=== PATIENT | female | born 2000 | race Caucasian/White ===

== ENCOUNTER → 2022-08-02 | Outpatient (CLI) | payer MEDICARE, OTHER ==
[~2022-08-02] MED LIST: MYCO250C PO; PRED5TA PO; TACR1CAP3 PO; VITA200044 PO
== END ==
LOC: M LABSMTC 09:31
PROVIDERS: ATTEND Anesthesiology
DX: Z01.812 Encounter for preprocedural laboratory examination (principal); Z20.822 Contact with and (suspected) exposure to COVID-19

== ENCOUNTER 2022-08-05 09:32 | Day surgery (SDC) | payer MEDICARE, OTHER ==
[~2022-08-05] VITALS: Ht 142.2 cm; Wt 47.1 kg
[2022-08-05] MEDS ORDERED: LR 1,000 ML IV SCH (09:55)
[2022-08-05] MEDS ORDERED: LIDOCAINE W/EPINEPHRINE 1% 20ML VIAL As Ordered ONE (10:51)
[2022-08-05] MEDS ORDERED: MIDAZOLAM INJ 2MG/2ML VIAL (J2250 PER 1MG) As Ordered ONE (10:51)
[2022-08-05] MEDS ORDERED: OXYMETAZOLINE 0.05% NASAL SPRAY (AFRIN) As Ordered ONE (10:51)
[2022-08-05] MEDS ORDERED: ROCURONIUM BROMIDE 50 MG/5 ML VIAL As Ordered ONE (10:52)
[2022-08-05] MEDS ORDERED: dexameTHASONE 4 MG/ML 1ML VIAL (J1100 PER 1MG) As Ordered ONE (10:52)
[2022-08-05] MEDS ORDERED: fentaNYL 100 MCG/2 ML INJECTION As Ordered ONE (10:52)
[2022-08-05] MEDS ORDERED: SUCCINYLCHOLINE 100 MG/5 ML SYRINGE (J0330) As Ordered ONE (10:52)
[2022-08-05] MEDS ORDERED: ONDANSETRON 4MG 2ML VIAL As Ordered ONE (10:53)
[2022-08-05] MEDS ORDERED: ACETAMINOPHEN 1000MG 100ML IV BTL (OFIRMEV) (J0131 PER 10MG) As Ordered ONE (10:53)
[2022-08-05] MEDS ORDERED: METOCLOPRAMIDE INJ 10MG/2ML VIAL (J2765 PER 1) As Ordered ONE (10:54)
[2022-08-05] MEDS ORDERED: propofoL 200 MG/20 ML VIAL As Ordered ONE (10:56)
[2022-08-05] MEDS ORDERED: LIDOCAINE 2% 100MG/5ML SDV (FOR ANES.) As Ordered ONE (10:56)
[2022-08-05] MEDS ORDERED: LIDOCAINE 2% JELLY 5ML TUBE As Ordered ONE (10:59)
[2022-08-05] MEDS ORDERED: ePHEDrine SULFATE 25 MG/5 ML(5MG/ML) SYRINGE As Ordered ONE (11:28)
[2022-08-05] MEDS ORDERED: fentaNYL 100 MCG/2 ML INJECTION IV PRN (11:50)
[2022-08-05] MEDS ORDERED: oxyCODONE 5MG TAB PO PRN (11:50)
[2022-08-05] MEDS ORDERED: ONDANSETRON 4MG 2ML VIAL IV PRN (11:50)
[2022-08-05 12:30] VITALS: BP 150/94
== END 2022-08-05 13:00 | disposition home or self-care (01) ==
LOC: M SDC 09:32
PROVIDERS: ATTEND Dentist Oral and Maxillofacial Surgery
DX: K01.1 Impacted teeth (principal); L73.2 Hidradenitis suppurativa; J45.909 Unspecified asthma, uncomplicated; D64.9 Anemia, unspecified; N18.9 Chronic kidney disease, unspecified; Z94.0 Kidney transplant status; Z79.52 Long term (current) use of systemic steroids; F41.9 Anxiety disorder, unspecified; Z79.899 Other long term (current) drug therapy; Z86.16 Personal history of COVID-19
CPT/HCPCS: 81025; 88300; D7210; D9223; J0131; J0330; J1100; J2250; J2405; J2765; J3010